=== PATIENT | female | born 1955 | race Caucasian/White ===

== ENCOUNTER 2018-11-02 09:35 | Outpatient (CLI) | payer OTHER | END 2018-11-02 09:36 | disposition home or self-care (01) | LOC: C.DEXAIC 09:35 | DX: M81.0 Age-related osteoporosis without current pathological fracture (principal); E78.2 Mixed hyperlipidemia ==

== ENCOUNTER 2018-11-09 09:37 | Outpatient (CLI) | payer OTHER | END 2018-11-09 09:38 | disposition home or self-care (01) | LOC: C.LAB 09:37 | DX: Z12.11 Encounter for screening for malignant neoplasm of colon (principal) ==